=== PATIENT | female | born 1995 | race Caucasian/White ===

== ENCOUNTER 2017-03-17 10:28 | Emergency (ER) | payer OTHER ==
[2017-03-17 10:47] VITALS: BP 129/82
--- NOTE | 2017-03-17 11:10 | UC ---
Throat Pain/Nasal Jaswinder HPI - HPI Summary HPI Summary: 22 year old female with c/o sore throat, nasal and chest congestion, productive cough with clear secretions, cough keeping her up at night that started last monday. Sx worsened at this time. ST gone now. (+) hoarse voice. Did vomit from the coughing recently. Failed robitussin and nyquil and tea [ End ] - History of Current Complaint Chief Complaint: UCRespiratory Stated Complaint: SORE THROAT,COUGH Time Seen by Provider: 03/17/17 11:02 Hx Obtained From: Patient Hx Last Menstrual Period: 03/11/17 Onset/Duration: Gradual Onset Severity: Mild Cough: Productive - Allergies/Home Medications Allergies/Adverse Reactions: Allergies Allergy/AdvReac Type Severity Reaction Status Date / Time Naproxen Allergy Hives Verified 03/17/17 10:40 Home Medications: Home Medications Kfqtzcg-Sadczgjvwjyrl-Glhhsroa [Excedrin Migraine 250-250-65 mg] 1 tab PO DAILY PRN 03/17/17 [History Confirmed 03/17/17] Norethindrone/Eth Est 1.5NF [Junel 1.11/29 (NF)] 1 tab PO DAILY 03/17/17 [ History Confirmed 03/17/17] Wbzwanoirxglu-Ykqvaoabya-Kqppo [Daytime/Nite Time Cold/Fl] 2 cap PO BID PRN [History Confirmed 03/17/17] guaiFENesin LIQ* [Robitussin*] 5 mg PO Q4H PRN 03/17/17 [History Confirmed 03/17] PMH/Surg Hx/FS Hx/Imm Hx Previously Healthy: Yes - Surgical History Surgical History: None - Family History Known Family History: Positive: Hypertension - father, Diabetes - paternal aunt , Other - brother with ADHD, headaches; mother has chronic headaches, never diag Negative: Cardiac Disease - Social History Occupation: Student Lives: Dormitory/Roommates Alcohol Use: None Substance Use Type: None Smoking Status (MU): Never Smoked Tobacco Review of Systems Constitutional: Negative Skin: Negative Eyes: Negative ENT: Negative, Sore Throat, Ear Ache, Nasal Discharge, Sinus Congestion, Sinus Pain/Tenderness Respiratory: Cough Cardiovascular: Negative Gastrointestinal: Negative Genitourinary: Negative Motor: Negative Neurovascular: Negative Musculoskeletal: Negative Neurological: Negative Psychological: Negative All Other Systems Reviewed And Are Negative: Yes Physical Exam Triage Information Reviewed: Yes Appearance: Well-Appearing, No Pain Distress, Well-Nourished Vital Signs: Initial Vital Signs Temp 97.6 F 03/17/17 10:42 Pulse 85 03/17/17 10:42 Resp 14 03/17/17 10:42 BP 129/82 03/17/17 10:42 Pulse Ox 100 03/17/17 10:42 Vital Signs Reviewed: Yes Eye Exam: Normal ENT Exam: Normal Dental Exam: Normal Neck exam: Normal Neck: Positive: 1 Respiratory Exam: Normal Cardiovascular Exam: Normal Musculoskeletal Exam: Normal Neurological Exam: Normal Psychological Exam: Normal Skin Exam: Normal Throat Pain/Nasal Course/Dx - Differential Dx/Diagnosis Differential Diagnosis/HQI/PQRI: Pharyngitis, Tonsillitis, URI Provider Diagnoses: sinusitis Discharge - Discharge Plan Condition: Good Disposition: HOME Prescriptions: Amoxicillin PO (*) [Amoxicillin 875 MG (*)] 875 mg PO BID #20 tab Benzonatate [TESSALON 200 MG CAP] 200 mg PO TID #20 cap Patient Education Materials: Sinusitis (ED) Forms: *School Release Referrals: No Primary Care Phys,NOPCP [Primary Care Provider] - 4 Days (If needed ) Additional Instructions: As we discussed if your symptoms worsen then please start the antibiotics but until then please use decongestants, flonase, the netti pot and nyquil for your symptoms.
== END 2017-03-17 11:30 | disposition home or self-care (01) ==
LOC: UCCORT 10:28
DX: J32.9 Chronic sinusitis, unspecified (principal)
CPT/HCPCS: 99212; G0463

== ENCOUNTER 2017-03-29 09:52 | Emergency (ER) | payer OTHER ==
[2017-03-29 10:06] VITALS: BP 123/69
--- NOTE | 2017-03-29 10:50 | UC ---
Throat Pain/Nasal Jaswinder HPI - HPI Summary HPI Summary: She has had two weeks of uri symptoms which improved and then she has had sore throat for about three days that has worsened. NO obviuous fever. Mild cough. she has had malaise and wonders if this is mono. - History of Current Complaint Chief Complaint: Lisa Stated Complaint: RE-CHECK SORE THROAT,HIVES Time Seen by Provider: 03/29/17 10:28 Hx Obtained From: Patient Hx Last Menstrual Period: 03/11/17 Onset/Duration: Gradual Onset, Lasting Weeks Severity: Moderate Cough: Nonproductive Associated Signs & Symptoms: Positive: Dysphagia. Negative: Fever, Vomiting, Rash - Epiglottits Risk Factors Epiglottis Risk Factors: Negative - Allergies/Home Medications Allergies/Adverse Reactions: Allergies Allergy/AdvReac Type Severity Reaction Status Date / Time Naproxen Allergy Hives Verified 03/29/17 10:06 PMH/Surg Hx/FS Hx/Imm Hx Previously Healthy: Yes - Surgical History Surgical History: None - Family History Known Family History: Positive: Hypertension - father, Diabetes - paternal aunt , Other - brother with ADHD, headaches; mother has chronic headaches, never diag Negative: Cardiac Disease - Social History Alcohol Use: None Substance Use Type: None Smoking Status (MU): Never Smoked Tobacco - Immunization History Most Recent Influenza Vaccination: no Review of Systems Skin: Rash - hives. ENT: Sore Throat Respiratory: Cough All Other Systems Reviewed And Are Negative: Yes Physical Exam Triage Information Reviewed: Yes Appearance: Well-Appearing, No Pain Distress, Well-Nourished Vital Signs: Initial Vital Signs Temp 98.1 F 03/29/17 10:01 Pulse 97 03/29/17 10:01 Resp 15 03/29/17 10:01 BP 123/69 03/29/17 10:01 Pulse Ox 100 03/29/17 10:01 Vital Signs Reviewed: Yes Eyes: Positive: Conjunctiva Clear ENT: Positive: Pharyngeal erythema, Nasal congestion, TMs normal. Negative: Tonsillar swelling, Tonsillar exudate, Trismus Neck: Positive: Supple, No Lymphadenopathy, Tenderness @ - Left submandibular swelling and tenderness. Respiratory: Positive: No respiratory distress, No accessory muscle use Cardiovascular: Negative: Pulses Normal, Brisk Capillary Refill Abdomen Description: Positive: No Organomegaly, Soft. Negative: CVA Tenderness (R), CVA Tenderness (L), Distended Musculoskeletal: Positive: Strength Intact, ROM Intact, No Edema Neurological: Positive: Alert, Muscle Tone Normal Skin: Positive: rashes - diffuse rash of the legs. raised, hives. Throat Pain/Nasal Course/Dx - Course Course Of Treatment: strep postitive. we will start decadron and amoxacillin. - Differential Dx/Diagnosis Provider Diagnoses: strep throat. hives. Discharge - Discharge Plan Condition: Good Disposition: HOME Prescriptions: Dexamethasone TAB* [Decadron TAB*] 4 mg PO BID #6 tab Patient Education Materials: Pharyngitis (ED) Referrals: No Primary Care Phys,NOPCP [Primary Care Provider] - Additional Instructions: return to [facility] if you do not improve.
[2017-03-29 14:04] LABS: EBV Response NO
[2017-03-29 14:25] LABS: Manual Entry Verification CR; Mono Internal Control QC Line Present
== END 2017-03-29 11:14 | disposition home or self-care (01) ==
LOC: UCCORT 09:52
DX: J02.0 Streptococcal pharyngitis (principal); L50.9 Urticaria, unspecified
CPT/HCPCS: 36415; 86308; 87651; 99212; G0463

== ENCOUNTER 2017-04-14 08:37 | Emergency (ER) | payer OTHER ==
[2017-04-14 08:45] VITALS: BP 95/70
--- NOTE | 2017-04-14 08:53 | UC ---
Eye Complaint HPI - HPI Summary HPI Summary: 22 YEAR OLD FEMALE PRESENTS WITH LEFT RED EYE WITH DISCHARGE. - History of Current Complaint Chief Complaint: UCEye Stated Complaint: LEFT EYE COMPLAINT Time Seen by Provider: 04/14/17 08:45 Hx Obtained From: Patient Hx Last Menstrual Period: 04/08/17 Onset/Duration: Sudden Onset Timing: Constant Severity Initially: Moderate Severity Currently: Moderate - Allergies/Home Medications Allergies/Adverse Reactions: Allergies Allergy/AdvReac Type Severity Reaction Status Date / Time Naproxen Allergy Hives Verified 04/14/17 08:42 PMH/Surg Hx/FS Hx/Imm Hx Previously Healthy: Yes - Surgical History Surgical History: None - Family History Known Family History: Positive: Hypertension - father, Diabetes - paternal aunt , Other - brother with ADHD, headaches; mother has chronic headaches, never diag Negative: Cardiac Disease - Social History Alcohol Use: None Substance Use Type: None Smoking Status (MU): Never Smoked Tobacco - Immunization History Most Recent Influenza Vaccination: NONE 2016 Review of Systems Constitutional: Negative Skin: Negative Eyes: Drainage, Eye Redness ENT: Negative Respiratory: Negative Cardiovascular: Negative Gastrointestinal: Negative Genitourinary: Negative Motor: Negative Neurovascular: Negative Musculoskeletal: Negative Neurological: Negative Psychological: Negative All Other Systems Reviewed And Are Negative: Yes Physical Exam Triage Information Reviewed: Yes Vital Signs: Initial Vital Signs Temp 36.2 C 04/14/17 08:43 Pulse 84 04/14/17 08:43 Resp 16 04/14/17 08:43 BP 95/70 04/14/17 08:43 Pulse Ox 100 04/14/17 08:43 Vital Signs Reviewed: Yes Eyes: Positive: Conjunctiva Inflamed, Discharge ENT Exam: Normal Dental Exam: Normal Neck exam: Normal Neck: Positive: 1 Respiratory Exam: Normal Cardiovascular Exam: Normal Abdominal Exam: Normal Musculoskeletal Exam: Normal Neurological Exam: Normal Psychological Exam: Normal Skin Exam: Normal Eye Complaint Course/Dx - Differential Dx/Diagnosis Provider Diagnoses: LEFT EYE ALLERGIC VS BACTERIAL CONJUNCTIVITIS Discharge - Discharge Plan Condition: Stable Disposition: HOME Prescriptions: Naphazoline W/ Pheniramine [Opcon-A] 1 drop OP Q8H PRN #1 bottle PRN Reason: Allergy Symptoms Polymyx/Trimethoprim OPTH* [Polytrim OPHTH*] 1 drop RIGHT EYE Q6H #1 btl Patient Education Materials: Conjunctivitis (ED) Forms: *Work Release Referrals: Non Staff,Doctor [Primary Care Provider] -
== END 2017-04-14 09:05 | disposition home or self-care (01) ==
LOC: UCCORT 08:37
DX: H10.12 Acute atopic conjunctivitis, left eye (principal); Z88.6 Allergy status to analgesic agent
CPT/HCPCS: 99212; G0463

== ENCOUNTER 2017-05-22 10:11 | Emergency (ER) | payer OTHER ==
--- NOTE | 2017-05-22 10:44 | UC ---
Headache HPI - HPI Summary HPI Summary: 22 year old female presents with a migraine headache. - History Of Current Complaint Stated Complaint: HEADACHE Time Seen by Provider: 05/22/17 10:44 Hx Last Menstrual Period: present Onset/Duration: Sudden Onset Onset Of Symptoms: Gradual Initially Headache Was: Moderate Currently Pain Is: Moderate Pain Scale Used: 0-10 Numeric - 7 - Allergies/Home Medications Allergies/Adverse Reactions: Allergies Allergy/AdvReac Type Severity Reaction Status Date / Time Naproxen Allergy Hives Verified 05/22/17 10:57 Home Medications: Home Medications Yrneoud-Xsayjbkzpadez-Qypfvmvx [Excedrin Migraine] 2 tab PO Q12H PRN 05/22/17 [ History Confirmed 05/22/17] PMH/Surg Hx/FS Hx/Imm Hx Previously Healthy: Yes - Surgical History Surgical History: None - Family History Known Family History: Positive: Hypertension - father, Diabetes - paternal aunt , Other - brother with ADHD, headaches; mother has chronic headaches, never diag Negative: Cardiac Disease - Social History Alcohol Use: None Substance Use Type: None Smoking Status (MU): Never Smoked Tobacco - Immunization History Most Recent Influenza Vaccination: NONE 2016 Review of Systems Constitutional: Negative Skin: Negative Eyes: Negative ENT: Negative Respiratory: Negative Cardiovascular: Negative Gastrointestinal: Negative Genitourinary: Negative Motor: Negative Neurovascular: Negative Musculoskeletal: Negative Neurological: Negative Psychological: Negative All Other Systems Reviewed And Are Negative: Yes Physical Exam Triage Information Reviewed: Yes Vital Signs Reviewed: Yes Eye Exam: Normal ENT Exam: Normal Dental Exam: Normal Neck exam: Normal Neck: Positive: 1 Respiratory Exam: Normal Cardiovascular Exam: Normal Abdominal Exam: Normal Musculoskeletal Exam: Normal Neurological Exam: Normal Psychological Exam: Normal Skin Exam: Normal Headache Course/Dx - Differential Dx/Diagnosis Provider Diagnoses: migraine Discharge - Discharge Plan Condition: Stable Disposition: HOME Prescriptions: Butalb/Acetamin/Caff TAB* [Fioricet TAB*] 1 tab PO Q8H PRN #9 tab MDD 3 PRN Reason: Headache Patient Education Materials: Migraine Headache (ED) Referrals: Marcelina Hoyt MD [Medical Doctor] - Non Staff,Doctor [Primary Care Provider] -
[2017-05-22 11:03] VITALS: BP 112/85
[2017-05-22] MEDS ORDERED: Ketorolac INJ* 30 MG/ML 1 ML VIAL IM ONE (11:06)
[2017-05-22] MEDS ORDERED: Ondansetron ODT TAB* 4 MG PO ONE (11:07)
== END 2017-05-22 11:45 | disposition home or self-care (01) ==
LOC: UCCORT 10:11
DX: G43.909 Migraine, unspecified, not intractable, without status migrainosus (principal); Z88.6 Allergy status to analgesic agent
CPT/HCPCS: 96372; 99212; A9270-GY; G0463; J1885

== ENCOUNTER 2017-07-16 14:50 | Emergency (ER) | payer OTHER ==
[2017-07-16 15:32] VITALS: BP 99/58
--- NOTE | 2017-07-16 16:19 | UC ---
Abdominal Pain Female HPI - HPI Summary HPI Summary: C/O nausea and vomiting x 3 days. Now vomiting has resolved but watery diarrhea has continued. Has developed left sided migraine. - History of Current Complaint Chief Complaint: UCGI Stated Complaint: ABDOMINAL PAIN,VOMITING Time Seen by Provider: 07/16/17 16:06 Hx Obtained From: Patient Hx Last Menstrual Period: 07/08/17 ?: No Onset/Duration: Sudden Onset, Lasting Days - 3 Timing: Constant Severity Initially: Severe Severity Currently: Mild Location: Diffuse - abdominal pain, worse on the left side. Radiates: No Character: Aching, Dull Aggravating Factor(s): Food Alleviating Factor(s): Medications - zofran Associated Signs and Symptoms: Positive: Fever - no fever today., Decreased Appetite, Nausea, Vomiting, Diarrhea. Negative: Blood in Stool, Urinary Symptoms Allergies/Adverse Reactions: Allergies Allergy/AdvReac Type Severity Reaction Status Date / Time Naproxen Allergy Hives Verified 07/16/17 15:24 Home Medications: Home Medications Ondansetron ODT TAB* [Zofran 4 MG Odt TAB*] 4 mg PO Q8H PRN 07/16/17 [History Confirmed 07/16/17] PMH/Surg Hx/FS Hx/Imm Hx Neurological History: Migraine - Surgical History Surgical History: None - Family History Known Family History: Positive: Hypertension - father, Diabetes - paternal aunt , Other - brother with ADHD, headaches; mother has chronic headaches, never diag Negative: Cardiac Disease - Social History Occupation: Employed Full-time Lives: With Family Alcohol Use: None Substance Use Type: None Smoking Status (MU): Never Smoked Tobacco Have You Smoked in the Last Year: No - Immunization History Most Recent Influenza Vaccination: 2017 Review of Systems Constitutional: Fever, Chills, Fatigue Gastrointestinal: Vomiting, Diarrhea Neurological: Headache Is Patient Immunocompromised?: No All Other Systems Reviewed And Are Negative: Yes Physical Exam Triage Information Reviewed: Yes Appearance: No Pain Distress, Well-Nourished, Ill-Appearing Vital Signs: Initial Vital Signs Temp 97.8 F 07/16/17 15:26 Pulse 80 07/16/17 15:26 Resp 18 07/16/17 15:26 BP 99/58 07/16/17 15:26 Pulse Ox 100 07/16/17 15:26 Vital Signs Reviewed: Yes Eyes: Positive: Conjunctiva Clear ENT: Positive: Pharynx normal - Mucus membranes moist, TMs normal - obscurred by wax bilaterally Dental Exam: Normal Neck exam: Normal Respiratory Exam: Normal Cardiovascular Exam: Normal Abdomen Description: Positive: Soft. Negative: Nontender - diffuse abdominal wall tenderness., No Organomegaly, CVA Tenderness (R), CVA Tenderness (L) Musculoskeletal Exam: Normal Neurological Exam: Normal Psychological Exam: Normal Skin Exam: Normal Abd Pain Female Course/Dx - Differential Dx/Diagnosis Differential Diagnosis: Appendicitis, Constipation, Diverticulitis, Pancreatitis Provider Diagnoses: Acute viral gastroenteritis. Acute migraine without aura Discharge - Discharge Plan Condition: Stable Disposition: HOME Prescriptions: Butalb/Acetamin/Caff TAB* [Fioricet TAB*] 1 tab PO Q8H PRN #9 tab MDD 3 PRN Reason: Headache Prochlorperazine TAB* [Compazine Tab*] 10 mg PO Q8H PRN #10 tab PRN Reason: Nausea/ migraine headache Patient Education Materials: Gastroenteritis (ED), Prochlorperazine (By mouth) , Butalbital/Aspirin/Caffeine (By mouth) Referrals: Non Staff,Doctor [Primary Care Provider] -
== END 2017-07-16 16:37 | disposition home or self-care (01) ==
LOC: UCCORT 14:50
DX: A08.4 Viral intestinal infection, unspecified (principal); G43.009 Migraine without aura, not intractable, without status migrainosus; Z88.6 Allergy status to analgesic agent
CPT/HCPCS: 99212; G0463

== ENCOUNTER 2017-08-21 13:36 | Emergency (ER) | payer OTHER ==
[2017-08-21 14:47] VITALS: BP 107/67
[2017-08-21] MEDS ORDERED: SUMAtriptan TAB* 100 MG PO ONE (14:52)
[2017-08-21] MEDS ORDERED: Ondansetron ODT TAB* 4 MG PO ONE (14:53)
--- NOTE | 2017-08-21 15:03 | UC ---
Headache HPI - HPI Summary HPI Summary: headaches x 4 days hx of migraine headaches , out of her meds + photophobia, + nausea , no vomiting no cold sx, no fever or chills - History Of Current Complaint Chief Complaint: UCHeadache Stated Complaint: HEADACHE Time Seen by Provider: 08/21/17 14:49 Hx Obtained From: Patient Hx Last Menstrual Period: 08/10/17 Onset/Duration: Gradual Onset, Lasting Days - 4, Still Present Onset Of Symptoms: Gradual, Still Present Initially Headache Was: Severe Pain Intensity: 7 Timing: Constant Character: Throbbing Location of Headache: Diffuse Aggravating Factor(s): Exertion, Bright Lights Allevating Factor(s): Nothing Associated Signs And Symptoms: Positive: Nausea. Negative: Dizziness, Seizure, Vomiting, Sinus Pressure, Fever, Neck Pain, Neck Stiffness, Decreased LOC, Visual Changes - Allergies/Home Medications Allergies/Adverse Reactions: Allergies Allergy/AdvReac Type Severity Reaction Status Date / Time naproxen Allergy Hives Verified 08/21/17 14:39 PMH/Surg Hx/FS Hx/Imm Hx Neurological History: Migraine - Surgical History Surgical History: None - Family History Known Family History: Positive: Hypertension - father, Diabetes - paternal aunt , Other - brother with ADHD, headaches; mother has chronic headaches, never diag Negative: Cardiac Disease - Social History Alcohol Use: Rare Substance Use Type: None Smoking Status (MU): Never Smoked Tobacco Have You Smoked in the Last Year: No - Immunization History Most Recent Influenza Vaccination: 2017 Review of Systems Constitutional: Negative Skin: Negative Eyes: Negative ENT: Negative Respiratory: Negative Cardiovascular: Negative Gastrointestinal: Negative Neurological: Headache Is Patient Immunocompromised?: No All Other Systems Reviewed And Are Negative: Yes Physical Exam Triage Information Reviewed: Yes Appearance: Well-Nourished, Pain Distress Vital Signs: Initial Vital Signs Temp 97.8 F 08/21/17 14:40 Pulse 77 08/21/17 14:40 Resp 16 08/21/17 14:40 BP 107/67 08/21/17 14:40 Pulse Ox 99 08/21/17 14:40 Vital Signs Reviewed: Yes Eyes: Positive: Conjunctiva Clear ENT: Positive: Normal ENT inspection, Hearing grossly normal, Pharynx normal Neck: Positive: Supple, Nontender, No Lymphadenopathy Respiratory: Positive: Chest non-tender, Lungs clear, Normal breath sounds, No respiratory distress Cardiovascular: Positive: RRR, No Murmur, Pulses Normal Musculoskeletal Exam: Normal Neurological: Positive: Alert Skin Exam: Normal UC Physical Exam Vital Signs On Initial Exam: Initial Vitals Temp Pulse Resp BP Pulse Ox 97.8 F 77 16 107/67 99 08/21/17 14:40 08/21/17 14:40 08/21/17 14:40 08/21/17 14:40 08/21/17 14:40 - Neurological Exam Neurological: Normal, Sensory/Motor Intact, Alert, Oriented to Person Place, Time, CN Intact II-III, Normal Gait, Speech Normal Headache Course/Dx - Differential Dx/Diagnosis Provider Diagnoses: headaches Discharge - Discharge Plan Condition: Stable Disposition: HOME Prescriptions: Ondansetron [Zofran Odt] 8 mg PO Q8H PRN #9 tab PRN Reason: Nausea/Vomiting SUMAtriptan TAB* [Imitrex TAB*] 100 mg PO SEE INSTRUCTIONS #10 tab Patient Education Materials: Migraine Headache (ED) Forms: *School Release Referrals: Non Staff,Doctor [Primary Care Provider] - 7 Days
[2017-08-21] MEDS ORDERED: SUMAtriptan SQ* 6 MG/0.5 ML VIAL SUBCUT ONE (15:04)
== END 2017-08-21 15:11 | disposition home or self-care (01) ==
LOC: UCCORT 13:36
DX: R51 Headache (principal)
CPT/HCPCS: 99212; A9270-GY; G0463

== ENCOUNTER 2017-10-15 10:46 | Emergency (ER) | payer OTHER ==
[2017-10-15 12:40] VITALS: BP 109/71
--- NOTE | 2017-10-15 12:57 | UC ---
UC General HPI - HPI Summary HPI Summary: sore throat for 2 days. no uri or fever - History of Current Complaint Stated Complaint: SORE THROAT Time Seen by Provider: 10/15/17 12:35 Hx Last Menstrual Period: 09/26/17 Onset/Duration: Gradual Onset Timing: Constant Pain Intensity: 8 Aggravating: nothing Alleviating: nothing Associated Signs & Symptoms: Negative: Fever, Headache - Allergy/Home Medications Allergies/Adverse Reactions: Allergies Allergy/AdvReac Type Severity Reaction Status Date / Time naproxen Allergy Hives Verified 10/15/17 12:35 Home Medications: Home Medications NK [No Home Medications Reported] 10/15/17 [History Confirmed 10/15/17] PMH/Surg Hx/FS Hx/Imm Hx - Additional Past Medical History Additional PMH: migraines - Surgical History Surgical History: None - Family History Known Family History: Positive: Hypertension - father, Diabetes - paternal aunt , Other - brother with ADHD, headaches; mother has chronic headaches, never diag Negative: Cardiac Disease - Social History Occupation: Student Lives: Dormitory/Roommates Alcohol Use: Rare Substance Use Type: None Smoking Status (MU): Never Smoked Tobacco Have You Smoked in the Last Year: No - Immunization History Most Recent Influenza Vaccination: 2017 Vaccination Up to Date: Yes Review of Systems Constitutional: Negative Skin: Negative Eyes: Negative ENT: Sore Throat Respiratory: Negative Cardiovascular: Negative Gastrointestinal: Negative Genitourinary: Negative Motor: Negative Neurovascular: Negative Musculoskeletal: Negative Neurological: Negative Psychological: Negative Is Patient Immunocompromised?: No All Other Systems Reviewed And Are Negative: Yes Physical Exam Triage Information Reviewed: Yes Appearance: Well-Appearing Vital Signs: Initial Vital Signs Temp 98.6 F 10/15/17 12:34 Pulse 104 10/15/17 12:34 Resp 16 10/15/17 12:34 BP 109/71 10/15/17 12:34 Pulse Ox 99 10/15/17 12:34 Vital Signs Reviewed: Yes Eyes: Positive: Conjunctiva Clear ENT: Positive: Pharyngeal erythema, TMs normal. Negative: Nasal congestion, Nasal drainage Neck: Positive: Supple, Nontender, Enlarged Nodes @ - peritonsilar Respiratory: Positive: Lungs clear, Normal breath sounds Cardiovascular: Positive: RRR, No Murmur Abdomen Description: Positive: Nontender, No Organomegaly, Soft Bowel Sounds: Positive: Present Musculoskeletal: Positive: ROM Intact Neurological: Positive: Alert Psychological: Positive: Age Appropriate Behavior Skin Exam: Normal Diagnostics - Laboratory Diagnostic Studies Completed/Ordered: rapid strep=neg. Course/Dx - Course Course Of Treatment: non toxic, rapid strep neg. tx supportive - Differential Dx - Multi-Symptom Provider Diagnoses: pahryngitis Discharge - Sign-Out/Discharge Documenting (check all that apply): Discharge - Discharge Plan Condition: Stable Disposition: HOME Patient Education Materials: Pharyngitis (ED) Additional Instructions: FOLLOW UP [facility] FOR A RECHECK IN 5 DAYS OR SOONER IF WORSE. - Billing Disposition and Condition Condition: STABLE Disposition: HOME
== END 2017-10-15 13:17 | disposition home or self-care (01) ==
LOC: UCCORT 10:46
DX: J02.9 Acute pharyngitis, unspecified (principal); Z88.6 Allergy status to analgesic agent
CPT/HCPCS: 87651; 99211; G0463

== ENCOUNTER 2018-05-30 07:07 | Emergency (ER) | payer OTHER ==
[2018-05-30 07:22] VITALS: BP 112/74
[2018-05-30] MEDS ORDERED: Ondansetron ODT TAB* 4 MG PO ONE (07:34)
--- NOTE | 2018-05-30 07:37 | UC ---
Nausea/Vomiting/Diarrhea HPI - HPI Summary HPI Summary: Pt presents to reporting acute onset nausea and vomiting which started after eating salad with steak last night for dinner. Pt states has vomited 4-5 times. No blood, no bilious. Pt states has some epigastric discomfort that has developed since vomiting. No diarrhea. Pt did make urine this morning. No back pain. No headache. Pt states last week had the influenza vaccine. Pt states subsequent to this she developed some muscle aches - particularly in her calves. States has taken Aleve with improvement. Denies changes in color to urine. no back pain. No fever, chills. Pt does have mild head congestion x 1 week as well. 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 Pt states her periods are regular and no chance of Pt's medications reviewed this visit - History of Current Complaint Chief Complaint: UCGI Stated Complaint: UPSET STOMACH Time Seen by Provider: 05/30/18 07:25 Hx Obtained From: Patient Hx Last Menstrual Period: 05/12/18 Onset/Duration: Sudden Onset Severity Initially: Mild Severity Currently: Mild Pain Intensity: 2 Location: Epigastric - Allergies/Home Medications Allergies/Adverse Reactions: Allergies Allergy/AdvReac Type Severity Reaction Status Date / Time naproxen Allergy Hives Verified 05/30/18 07:15 Home Medications: Home Medications Acetaminophen/Caffeine [Excedrin Tension Headache Cplt] 1 each PO ONCE 05/30/18 [History Confirmed 05/30/18] Norethindrone-E.estradiol-Iron [Junel Fe 07/22 1-20 mg-Mcg] 1 tab PO DAILY [History Confirmed 05/30/18] PMH/Surg Hx/FS Hx/Imm Hx Previously Healthy: Yes GI/ History: Other - gastritis Neurological History: Migraine - Surgical History Surgical History: None - Family History Known Family History: Positive: Hypertension - father, Diabetes - paternal aunt , Other - brother with ADHD, headaches; mother has chronic headaches, never diag Negative: Cardiac Disease - Social History Alcohol Use: Rare Substance Use Type: None Smoking Status (MU): Never Smoked Tobacco Have You Smoked in the Last Year: No - Immunization History Most Recent Influenza Vaccination: 2017 Vaccination Up to Date: Yes Review of Systems All Other Systems Reviewed And Are Negative: Yes Constitutional: Positive: Fatigue Skin: Positive: Negative Gastrointestinal: Positive: Abdominal Pain - epigastric, Vomiting, Nausea Musculoskeletal: Positive: Myalgia Neurological: Positive: Negative Physical Exam - Summary Physical Exam Summary: Vital Signs Reviewed: Yes A+Ox3, no distress, tired appearing Eyes: Conjunctiva Clear, MELONY. EOM intact and full ENT: Hearing grossly normal TM obscurred b/l with firm cerumen, turbinates mildly inflammed, mmpasty, lips dry, uvula midline, no exudate, no erythema Neck: Positive: Supple Respiratory: Positive: No respiratory distress, No accessory muscle use + CTA throughout no w/r Cardiovascular: RRR nl s1, s2 no m/r CBT <2 sec abd soft + BS, nd, mild epigastric discomfort wtih deep palp, no guarding, no distension Musculoskeletal Exam: CAMPBELL x 4 without difficulty Strength Intact, ROM Intact, ambulatory without difficulty or change in gait Neurological: Positive: Alert, + sensation throughout Psychological: Positive: Normal Response To Family Skin: Positive: no rash, no ecchymosis Triage Information Reviewed: Yes Vital Signs: Initial Vital Signs Temp 98.3 F 05/30/18 07:16 Pulse 77 05/30/18 07:16 Resp 15 05/30/18 07:16 BP 112/74 05/30/18 07:16 Pulse Ox 100 05/30/18 07:16 Re-Evaluation - Re-Evaluation First Eval Re-Evaluation Time: 08:09 Comment: Pt vomiting with water trial after zofran. will place IV. 1 liter. zofran. pepcid. pt in agreement with plan Second Eval Re-Evaluation Time: 09:11 Comment: no further vomiting. multiple failed attempts at IV. pt taking ice chips at present. will attempt x 1 more Third Eval Re-Evaluation Time: 10:20 Change: Improved - Iv in - pt states feeling better eating ice chips given crackers and gingerale Fourth Eval Change: Improved - will d/c rx zofran work note/school note Naus/Vom/Diarrhea Course/Dx - Course Course Of Treatment: Pt presents with acute nausea and vomiting starting after eating steak salad last night. Pt states vomited 4-5 times - thinks food was bad. no others with same sx. no fevers. mild epigastric discomfort. No diarrhea. + UOP. Pt also with myalgia s/p getting influenza vaccine last week. Has taken Aleve with improvement, but still present. On exam, VSS. Pt with cerumen impaction. Pt with dry lips and pasty mucous membrane. abd exam non concerning. I d/w pt oral zofran vs intravenous fluids/antiemtic - pt would like to try oral zofran with oral hydration. pt has previously taken zofran for migraine. Pt with cerumen impaction - will Rx debrox and recommend f/u with pcp i 2 weeks when home. concerned irrigation will cause dizziness today. Pt comfortable and in agreement with plan. will give zofran, oral challenge -r echeck - Differential Dx/Diagnosis Provider Diagnosis: Nausea & vomiting, Myalgia, Cerumen impaction Condition At Discharge: Stable Discharge - Sign-Out/Discharge Documenting (check all that apply): Patient Departure All imaging exams completed and their final reports reviewed: No - Discharge Plan Condition: Stable Disposition: HOME Prescriptions: Carbamide Peroxide 6.5% OTIC* [DEBROX 6.5% Otic*] 3 drop BOTH EARS DAILY #1 bottle Ondansetron ODT TAB* [Zofran 4 MG Odt TAB*] 4 mg PO Q4H PRN #10 tab.odt PRN Reason: Nausea Patient Education Materials: Cerumen Impaction (ED), Acute Nausea and Vomiting (ED), Musculoskeletal Pain (ED) Referrals: No Primary Care Phys,NOPCP [Primary Care Provider] - [facility] [Outside] Additional Instructions: - For the first 6 hours, eat and drink clears (water, jimenez winston, soup broth, jello, popsicles, Gatorade). If you tolerate this okay, add bland foods such as dry toast, scrambled eggs, crackers. Wait until you are feeling better for 24 hours before eating spicy food, acidic food, tomato based food, fried food. - Okay to take zofran, nausea medication, as prescribed for nausea -It is recommended you take Tylenol (Acetaminophen) every 6-8 hours as needed for pain or fever - humidify the room where you sleep - boil water, run a hot steam shower, vaporizer, cups of water by heat register - If you continue to have uncontrolled nausea and vomiting, develop fevers, pain , lightheadedness, decrease urine production, have dark brown urine or any other concerns it is recommended you go to the emergency department for further evaluation and treatment As discussed with your provider today - you have hard wax in both of your ears. It is recommended you place ear wax softening drops in your ears as prescribed today. In 2-3 weeks, it is recommended you contact [facility] or your primary care provider (when you return home for break) to have your ears flushed - Billing Disposition and Condition Condition: STABLE Disposition: Home
[2018-05-30] MEDS ORDERED: NS 0.9% 1000 ML* 1,000 ML IV ONE (08:08)
[2018-05-30] MEDS ORDERED: Ondansetron INJ* 2 MG/ML VIAL IV ONE (08:08)
[2018-05-30] MEDS ORDERED: Famotidine IV* 10 MG/ML 2 ML (20 mg) IV SLOW PU ONE (08:09)
--- NOTE | 2018-05-30 14:25 | UC ---
Re-Evaluation - Re-Evaluation First Eval Re-Evaluation Time: 08:09 Comment: Pt vomiting with water trial after zofran. will place IV. 1 liter. zofran. pepcid. pt in agreement with plan Second Eval Re-Evaluation Time: 09:11 Comment: no further vomiting. multiple failed attempts at IV. pt taking ice chips at present. will attempt x 1 more Third Eval Re-Evaluation Time: 10:20 Change: Improved - Iv in - pt states feeling better eating ice chips given crackers and gingerale Fourth Eval Change: Improved - will d/c rx zofran work note/school note Course/Dx - Diagnoses Provider Diagnoses: Nausea & vomiting, Myalgia, Cerumen impaction Discharge - Sign-Out/Discharge Documenting (check all that apply): Post-Discharge Follow Up All imaging exams completed and their final reports reviewed: No Studies - Discharge Plan Condition: Stable Disposition: HOME Prescriptions: Carbamide Peroxide 6.5% OTIC* [DEBROX 6.5% Otic*] 3 drop BOTH EARS DAILY #1 bottle Ondansetron ODT TAB* [Zofran 4 MG Odt TAB*] 4 mg PO Q4H PRN #10 tab.odt PRN Reason: Nausea Patient Education Materials: Cerumen Impaction (ED), Acute Nausea and Vomiting (ED), Musculoskeletal Pain (ED) Forms: *School Release, *Work Release Referrals: [facility] [Outside] No Primary Care Phys,NOPCP [Primary Care Provider] - Additional Instructions: - For the first 6 hours, eat and drink clears (water, jimenez winston, soup broth, jello, popsicles, Gatorade). If you tolerate this okay, add bland foods such as dry toast, scrambled eggs, crackers. Wait until you are feeling better for 24 hours before eating spicy food, acidic food, tomato based food, fried food. - Okay to take zofran, nausea medication, as prescribed for nausea -It is recommended you take Tylenol (Acetaminophen) every 6-8 hours as needed for pain or fever - humidify the room where you sleep - boil water, run a hot steam shower, vaporizer, cups of water by heat register - If you continue to have uncontrolled nausea and vomiting, develop fevers, pain , lightheadedness, decrease urine production, have dark brown urine or any other concerns it is recommended you go to the emergency department for further evaluation and treatment As discussed with your provider today - you have hard wax in both of your ears. It is recommended you place ear wax softening drops in your ears as prescribed today. In 2-3 weeks, it is recommended you contact [facility] or your primary care provider (when you return home for break) to have your ears flushed - Billing Disposition and Condition Condition: STABLE Disposition: Home
== END 2018-05-30 11:06 | disposition home or self-care (01) ==
LOC: UCCORT 07:07
DX: Z88.8 Allergy status to other drugs, medicaments and biological substances (principal); R11.2 Nausea with vomiting, unspecified; M79.10 Myalgia, unspecified site; H61.20 Impacted cerumen, unspecified ear
CPT/HCPCS: 96361; 96374; 96375; 99212; A9270-GY; G0463; J2405

== ENCOUNTER 2018-08-14 09:55 | Emergency (ER) | payer OTHER ==
[2018-08-14 10:12] VITALS: BP 123/72
--- NOTE | 2018-08-14 10:33 | UC ---
UC General HPI - HPI Summary HPI Summary: second day of headache, fever, sore throat cough/sob/wheezing and body aches. no asthma. - History of Current Complaint Chief Complaint: UCRespiratory Stated Complaint: CHEST CONGESTION Time Seen by Provider: 08/14/18 10:11 Hx Obtained From: Patient Hx Last Menstrual Period: 08/04/18 Onset/Duration: Gradual Onset Timing: Constant Pain Intensity: 5 Associated Signs & Symptoms: Positive: Cough, Fever - 102, Headache, SOB, Wheezing. Negative: Chest Pain, Diarrhea - Allergy/Home Medications Allergies/Adverse Reactions: Allergies Allergy/AdvReac Type Severity Reaction Status Date / Time morphine Allergy Hives Verified 08/14/18 10:06 naproxen Allergy Hives Verified 08/14/18 10:06 Home Medications: Home Medications Ibuprofen TAB* [Advil TAB*] 400 mg PO Q6H PRN 08/14/18 [History Confirmed ] Pseudoephedrine TAB* [Sudafed TAB*] 30 mg PO Q6H PRN 08/14/18 [History Confirmed 08/14/18] PMH/Surg Hx/FS Hx/Imm Hx Previously Healthy: Yes - Surgical History Surgical History: None - Family History Known Family History: Positive: Hypertension - father, Diabetes - paternal aunt , Other - brother with ADHD, headaches; mother has chronic headaches, never diag Negative: Cardiac Disease - Social History Occupation: Employed Full-time Alcohol Use: Rare Substance Use Type: None Smoking Status (MU): Never Smoked Tobacco Have You Smoked in the Last Year: No - Immunization History Most Recent Influenza Vaccination: 2017 Vaccination Up to Date: Yes Review of Systems All Other Systems Reviewed And Are Negative: Yes Constitutional: Positive: Fever, Chills Skin: Positive: Negative Eyes: Positive: Negative ENT: Positive: Sore Throat Respiratory: Positive: Shortness Of Breath, Cough Cardiovascular: Positive: Negative Gastrointestinal: Positive: Negative Genitourinary: Positive: Negative Motor: Positive: Negative Neurovascular: Positive: Negative Musculoskeletal: Positive: Myalgia Neurological: Positive: Headache Psychological: Positive: Negative Is Patient Immunocompromised?: No Physical Exam Triage Information Reviewed: Yes Appearance: Well-Appearing Vital Signs: Initial Vital Signs Temp 98.7 F 08/14/18 10:07 Pulse 109 08/14/18 10:07 Resp 16 08/14/18 10:07 BP 123/72 08/14/18 10:07 Pulse Ox 99 08/14/18 10:07 Vital Signs Reviewed: Yes Eyes: Positive: Conjunctiva Clear ENT: Positive: Pharynx normal, TMs normal. Negative: Nasal congestion, Nasal drainage Neck: Positive: Supple, Nontender, No Lymphadenopathy Respiratory: Positive: No respiratory distress, Decreased breath sounds, Rhonchi , Wheezing, Other: - Congested cough Cardiovascular: Positive: RRR, No Murmur. Negative: Tachycardia Abdomen Description: Positive: Nontender, No Organomegaly, Soft Bowel Sounds: Positive: Present Musculoskeletal: Positive: ROM Intact Neurological: Positive: Alert Psychological: Positive: Age Appropriate Behavior Skin Exam: Normal Diagnostics - Laboratory Diagnostic Studies Completed/Ordered: RAPID STREP=NEG. RAPID FLU=neg - Radiology No standard instances Radiology Interpretation Completed By: Radiologist - cxr=nad Re-Evaluation - Re-Evaluation First Eval Re-Evaluation Time: 11:07 Change: Improved - better aeration and much less wheezes plus no rhonchi. Course/Dx - Differential Dx - Multi-Symptom Differential Diagnoses: Other - no concern for pneumonia. s/s's c/w local influenza. - Diagnoses Provider Diagnosis: Influenza-like illness Discharge - Sign-Out/Discharge Documenting (check all that apply): Patient Departure All imaging exams completed and their final reports reviewed: Yes - Discharge Plan Condition: Stable Disposition: HOME Prescriptions: Albuterol HFA INHALER* [Ventolin HFA Inhaler*] 2 puff INH Q6H #1 mdi predniSONE [Prednisone 20 MG TAB] 40 mg PO DAILY 5 Days #10 tablet Patient Education Materials: Influenza (ED) Forms: *School Release Referrals: ELHAM HERMOSILLO [[facility]BUSINESS, APPLICATION, OTHER] - 5 Days - Billing Disposition and Condition Condition: STABLE Disposition: Home
[2018-08-14] MEDS ORDERED: Albuterol 2.5 MG/3 ML NEB.SOL* (0.083%) INH ONE (10:34)
[2018-08-14 10:53] LABS: Influenza A Molecular NEGATIVE (Negative); Influenza B Molecular NEGATIVE (Negative)
== END 2018-08-14 11:16 | disposition home or self-care (01) ==
LOC: UCCORT 09:55
DX: J11.1 Influenza due to unidentified influenza virus with other respiratory manifestations (principal); Z88.8 Allergy status to other drugs, medicaments and biological substances; Z88.5 Allergy status to narcotic agent
CPT/HCPCS: 71046; 87651; 99212; G0463

== ENCOUNTER 2018-08-16 11:52 | Emergency (ER) | payer OTHER ==
--- NOTE | 2018-08-16 13:09 | UC ---
Respiratory Complaint HPI - HPI Summary HPI Summary: 23 yo female presents with sore throat. She tells me that she was seen here about 2-3 days ago and strep and flu test were negative. She was given prednisone and her cough has significantly improved, but her sore throat is much worse. She tells me that she has had strep in the past with a negative rapid test and is requesting treatment today. She is eating and drinking well. Denies fever, rash, abdominal pain, n/v. - History of Current Complaint Stated Complaint: RECHECK - CONGESTION,FLU LIKE SXS Time Seen by Provider: 08/16/18 13:09 Hx Obtained From: Patient Hx Last Menstrual Period: 08/04/18 Onset/Duration: Gradual Onset Severity Initially: Mild Severity Currently: Moderate Pain Intensity: 7 Pain Scale Used: 0-10 Numeric - Allergies/Home Medications Allergies/Adverse Reactions: Allergies Allergy/AdvReac Type Severity Reaction Status Date / Time morphine Allergy Hives Verified 08/16/18 13:12 naproxen Allergy Hives Verified 08/16/18 13:12 PMH/Surg Hx/FS Hx/Imm Hx Respiratory History: Asthma - Surgical History Surgical History: None - Family History Known Family History: Positive: Hypertension - father, Diabetes - paternal aunt , Other - brother with ADHD, headaches; mother has chronic headaches, never diag Negative: Cardiac Disease - Social History Occupation: Student Lives: Dormitory/Roommates Alcohol Use: Rare Substance Use Type: None Smoking Status (MU): Never Smoked Tobacco Have You Smoked in the Last Year: No - Immunization History Most Recent Influenza Vaccination: 2017 Vaccination Up to Date: Yes Review of Systems All Other Systems Reviewed And Are Negative: Yes Constitutional: Positive: Negative Skin: Positive: Negative Eyes: Positive: Negative ENT: Positive: Sore Throat Respiratory: Positive: Negative Cardiovascular: Positive: Negative Gastrointestinal: Positive: Negative Neurovascular: Positive: Negative Neurological: Positive: Negative Psychological: Positive: Negative Physical Exam - Summary Physical Exam Summary: GENERAL: NAD. WDWN. No pain distress. SKIN: No rashes, sores, lesions, or open wounds. HEENT: Head: AT/NC Eyes: EOM intact. Conjunctiva clear without inflammation or discharge. Ears: Hearing grossly normal. TMs intact, no bulging, erythema, or edema. Nose: Nasal mucosa pink and moist. NTTP maxillary and frontal sinus. Throat: Posterior oropharynx with mild erythema. Without exudates or tonsillar enlargement. Uvula midline. NECK: Supple. Nontender. No lymphadenopathy. CHEST: CTAB. No r/r/w. No accessory muscle use. Breathing comfortably and in no distress. CV: RRR. Without m/r/g. Pulses intact. Cap refill <2seconds NEURO: Alert. PSYCH: Age appropriate behavior. Triage Information Reviewed: Yes Vital Signs: Vital Signs: Temp Pulse Resp BP Pulse Ox 98.3 F 87 16 111/70 100 08/16/18 13:11 08/16/18 13:11 08/16/18 13:11 08/16/18 13:11 08/16/18 13:11 Vital Signs Reviewed: Yes Respiratory Course/Dx - Course Course Of Treatment: Suspect viral pharyngitis, however pt prefers to be on antibiotics at this time. Rx for amoxicillin. - Differential Dx/Diagnosis Provider Diagnosis: Pharyngitis Discharge - Sign-Out/Discharge Documenting (check all that apply): Patient Departure All imaging exams completed and their final reports reviewed: No Studies - Discharge Plan Condition: Stable Disposition: HOME Prescriptions: Amoxicillin PO (*) [Amoxicillin 500 MG CAP*] 500 mg PO Q12H #14 cap Patient Education Materials: Pharyngitis (ED) Referrals: No Primary Care Phys,NOPCP [Primary Care Provider] - Additional Instructions: If you develop a fever, shortness of breath, chest pain, new or worsening symptoms - please call your PCP or go to the ED. - Billing Disposition and Condition Condition: STABLE Disposition: Home
[2018-08-16 13:15] VITALS: BP 111/70
== END 2018-08-16 13:28 | disposition home or self-care (01) ==
LOC: UCCORT 11:52
DX: J02.9 Acute pharyngitis, unspecified (principal); J45.909 Unspecified asthma, uncomplicated; Z88.5 Allergy status to narcotic agent; Z88.8 Allergy status to other drugs, medicaments and biological substances
CPT/HCPCS: 99212; G0463